=== PATIENT | male | born 1970 | race Caucasian/White ===

== ENCOUNTER 2016-08-03 06:42 | Outpatient (CLI) ==
--- NOTE | 2016-08-03 10:35 | STRESSECHO ---
Date of Test: 08/03/16 Reason for Exam: ELEVATED BLOOD PRESSURE/CHEST PAIN Ordering Physician: MERLIN THACKER Resting EKG: SINUS RHYTHM/LEFT VENTRICULAR HYPERTROPHY BY VOLTAGE Target Heart Rate: 147/173 STAGE MPH/GRADE HEART RATE BPM BLOOD PRESSURE mmhg RHYTHM S-T SEGMENT +/- UP DOWN SYMPTOMS,COMMENTS At Rest 70 166/100 SR X NONE 1 1.7/10% 125 200/110 SR X NONE 2 2.5/12% 3 3.4/14% 4 4.2/16% 5 5.0/18% Immediately after 145 208/118 SR X SHORT OF BREATH Durations of Exercise: 5:41 Maximum Heart Rate Reached: 145 Reason for Termination: SHORT OF BREATH INTERPRETATION: 98% OXYGEN SATURATION WITH EXERCISE ON ROOM AIR METS 7.0 1. NO EVIDENCE OF ISCHEMIA BY ST-T WAVE 2. NO CHEST PAIN OR CHEST DISCOMFORT 3. BLOOD PRESSURE RESPONSE: HYPERTENSION, BORDERLINE AND DURING EXERCISE 4. FEW PVC'S WITH EXERCISE NORMAL LEFT VENTRICULAR CONTRACTILITY--RESTING AND POST EXERCISE MTDD
--- NOTE | 2016-08-03 10:43 | ECHOSTRESS ---
Date of Exam: 08/03/16 Ordering Physician: MERLIN THACKER Reason for Echo: ELEVATED BLOOD PRESSURE/CHEST PAIN, STRESS TEST--NO ISCHEMIA M-Mode Normal Adult Results LV Dimensions Normal Adult Results AoV Opening excursions >1.6 LVEDD-base- 3.5-5.8 Ao root dimensions 2.0-3.7 LVESD-base- 3.1-4.6 L. Atrium dimensions 1.9-3.8 Post. Wall thickness 0.8-1.1 IV septum (thickness) 0.7-1.2 Post. Wall excursion 0.72-1.3 Septal motion Systolic motion R. Ventricular cavity 1.5-2.0 LVEF 60% Paradoxical septal wall motion 2-D: NORMAL LEFT VENTRICULAR CONTRACTILITY--RESTING AND POST EXERCISE M-MODE: MV: AV: TV: PV: CHAMBER SIZE: WALL MOTION: NORMAL LEFT VENTRICULAR CONTRACTILITY--RESTING AND POST EXERCISE PERICARDIUM: INTERPRETATION: 1. NORMAL LEFT VENTRICULAR CONTRACTILITY--RESTING AND POST EXERCISE MTDD
== END 2016-08-03 06:43 | disposition home or self-care (01) ==
LOC: CAR 06:42
PROVIDERS: ATTEND Family Medicine
DX: I10 Essential (primary) hypertension (principal); R07.9 Chest pain, unspecified

== ENCOUNTER 2016-09-11 15:26 | Emergency (ER) ==
[2016-09-11 15:36] VITALS: BP 128/90; TEMP 98.3; BMI 20.9
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
== END 2016-09-11 17:26 | disposition home or self-care (01) ==
LOC: ED 15:26
DX: L02.214 Cutaneous abscess of groin (principal); F17.210 Nicotine dependence, cigarettes, uncomplicated
CPT/HCPCS: 87070; 99283

== ENCOUNTER 2018-03-12 11:42 | Emergency (ER) | payer OTHER ==
[2018-03-12 11:45] VITALS: BP 144/97; TEMP 97.3; BMI 20.5
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
--- NOTE | 2018-03-12 13:23 | DI ---
EXAMINATION: AP upright and AP supine views of the abdomen. HISTORY: Abdominal pain COMPARISON: None FINDINGS: There is no obstruction or ileus or free air. There is no portal venous gas. There are no s uspicious calcifications or soft tissue masses. No acute osseous abnormalities. There is a mild amoun t of retained stool more so on the right. IMPRESSION: 1. No acute abnormality. 2. Modest amount of retained stool in the right.
[2018-03-12] MEDS ORDERED: CITRATE OF MAGNESIA PO STA (13:37)
== END 2018-03-12 14:35 | disposition home or self-care (01) ==
LOC: ED 11:42
DX: K59.00 Constipation, unspecified (principal); F17.210 Nicotine dependence, cigarettes, uncomplicated
CPT/HCPCS: 36415; 80053; 85025; 99283

== ENCOUNTER 2018-08-01 06:49 | Emergency (ER) ==
[2018-08-01 06:56] VITALS: BP 131/91; TEMP 97.7; BMI 21.1
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
[2018-08-01] MEDS ORDERED: XOPENEX 1.25 MG NEB STA (08:34)
--- NOTE | 2018-08-01 08:49 | DI ---
EXAM: CHEST FRONTAL VIEW HISTORY: Shortness of breath. COMPARISON: 12/28/2009 FINDINGS / IMPRESSION: Cardiomegaly is suggested. There is subtle central vascular congestion and i nterstitial infiltrate/edema. No visible pleural fluid or pneumothorax. No bianka consolidated pneum onia is seen.
[2018-08-01] MEDS ORDERED: LASIX IVP STA ×2 (08:54)
--- NOTE | 2018-08-01 13:16 | CT ---
EXAM: CTA CHEST (PE PROTOCOL) HISTORY: Dyspnea, hypoxia TECHNIQUE: CTA chest with intravenous contrast. Multiplanar images were provided with 3-D reconstru ctions. 125 mL Omnipaque. COMPARISON: None FINDINGS: No pulmonary arterial filling defect. There is at least mild atherosclerotic disease. Cardiomegaly is noted. Trace pericardial effusion. Limited evaluation of the mediastinum and saba secondary to n o enhancement at these levels on this CTA technique exam. There does appear to be a few scattered ly mph nodes in these regions which are nonspecific. At least small bilateral pleural effusions are present. Central vascular congestion is noted. There is at least mild central interstitial infiltrate. A few patchy airspace opacities may be present mo st noted right upper lobe. There is no pneumothorax. The bones are within normal limits. IMPRESSION: 1. No pulmonary arterial thromboembolism identified. 2. Cardiomegaly, pulmonary vascular congestion and at least mild central interstitial edema. At kacy st one patchy airspace opacity is present in the right upper lobe which could represent superimposed pneumonia. Correlate clinically. 3. Atherosclerosis.
== END 2018-08-01 12:30 | disposition short-term general hospital (02) ==
LOC: ED 06:49
DX: R06.02 Shortness of breath (principal); J81.1 Chronic pulmonary edema; I51.7 Cardiomegaly; R79.89 Other specified abnormal findings of blood chemistry; F17.210 Nicotine dependence, cigarettes, uncomplicated
CPT/HCPCS: 36415; 80053; 80306; 81001; 82803; 83880; 84484; 85025; 85379; 85730; 87502; 93005; 93010; 94640; 96374; 99285

== ENCOUNTER 2018-08-01 12:28 | Outpatient (CLI) ==
[2018-08-01 06:56] VITALS: BMI 21.1
== END 2018-08-01 12:29 | disposition home or self-care (01) ==
LOC: AMBL 12:28
PROVIDERS: ATTEND Emergency Medicine
DX: R06.02 Shortness of breath (principal); I50.9 Heart failure, unspecified; R00.0 Tachycardia, unspecified

== ENCOUNTER 2018-08-23 20:26 | Outpatient (CLI) | END 2018-08-23 21:44 | disposition short-term general hospital (02) | LOC: AMBL 20:26 | PROVIDERS: ATTEND Family Medicine | DX: I49.9 Cardiac arrhythmia, unspecified (principal); I21.9 Acute myocardial infarction, unspecified ==